=== PATIENT | female | born 1965 | race Caucasian/White ===

== ENCOUNTER → 2017-05-04 | Outpatient (CLI) | payer OTHER | END | disposition home or self-care (01) | LOC: GMAJ 10:17 | PROVIDERS: ATTEND Family Medicine | DX: I10 Essential (primary) hypertension (principal) ==

== ENCOUNTER 2017-07-31 11:00 | Emergency (ER) | payer OTHER ==
[2017-07-31 11:15] VITALS: TEMP 97.9
--- NOTE | 2017-07-31 11:24 | ED.PDOC ---
History of Present Illness - General Chief Complaint: General Stated Complaint: right neck swelling Time Seen by Provider: 07/31/17 11:19 Source: patient Exam Limitations: no limitations - History of Present Illness Initial Comments: Pattie Hidalgo 52 y/o female stated that she had right sided sharp neck pain and swelling4 days ago with pain radiating to her chest,right shoulder and shoulder blades.Also with SOB and pleuric pain on coughing.Denies fever,chills,nausea, vomiting.Has mild non productive cough. Had normal mammogram several years ago. Stated swelling getting less today. Timing/Duration: constant Severity: moderate Improving Factors: nothing, rest Worsening Factors: other - cough and pressure Associated Symptoms: shortness of breath Allergies/Adverse Reactions: Allergies Codeine Allergy (Verified 07/31/17 11:15) Home Medications: Ambulatory Orders Azithromycin [Zithromax] 500 mg PO DAILY #3 tab 07/31/17 Cefuroxime Axetil [Ceftin] 500 mg PO BID #14 tab 07/31/17 Fiber [Fiber Select Gummies] 1 chw PO DAILY 07/31/17 Loratadine [Claritin] 10 mg PO DAILY 07/31/17 Magnesium [Magnesium] 400 mg PO DAILY 07/31/17 Metoprolol Tartrate 100 mg PO BID 07/31/17 Multiple Vitamin [Multi Vitamin] 1 tab PO DAILY 07/31/17 Thyroid [Nature-Throid] 65 mg PO BINU-OTH-DAY 07/31/17 Tramadol HCl 50 mg PO Q4HR PRN #20 tab 07/31/17 Review of Systems - Review of Systems Constitutional: States: see HPI EENTM: States: see HPI Respiratory: States: see HPI Cardiology: States: no symptoms reported Gastrointestinal/Abdominal: States: no symptoms reported Genitourinary: States: no symptoms reported Musculoskeletal: States: no symptoms reported Skin: States: no symptoms reported Neurological: States: no symptoms reported Past Medical History (General) - Patient Medical History Hx Hypertension: Yes Hx Thyroid Disease: Yes Surgical History: other - ,endometrial ablation - Vaccination History Hx Influenza Vaccination: No Hx Pneumococcal Vaccination: No - Social History Hx Tobacco Use: No Hx Alcohol Use: No Hx Substance Use: No Hx Substance Use Treatment: No Hx Depression: No - Female History Patient is a Female of Child Bearing Age (10 -59 yrs old): Yes Hx Last Menstrual Period: 07/11/17 Patient : No Family Medical History - Family History Mother Family History: Unknown Hx Family Hypertension: Yes - parents Hx Family Diabetes: Yes - brother Physical Exam - Physical Exam General Appearance: Alert, Anxious, No apparent distress Eye Exam: bilateral normal Ears, Nose, Throat: hearing grossly normal, normal ENT inspection, normal pharynx Neck: full range of motion, supple, other - tenderness right side with swelling noted Respiratory: lungs clear, normal breath sounds, other - tenderness right side lung Cardiovascular/Chest: normal peripheral pulses, regular rate, rhythm, no murmur Peripheral Pulses: radial,right: 1+, radial,left: 1+ Gastrointestinal/Abdominal: normal bowel sounds, non tender, soft Back Exam: no vertebral tenderness Neurologic: no motor/sensory deficits, alert, oriented x 3 Skin Exam: normal color, warm/dry Lymphatic: no adenopathy Progress - Progress Progress: 07/31/17 11:59 Vital Signs - 8 hr 07/31/17 11:12 Temperature 97.9 F Pulse Rate [ 72 pulse ox] Respiratory 20 Rate Blood Pressure 145/84 [Left Arm] O2 Sat by Pulse 97 Oximetry - Results/Orders Results/Orders: Laboratory Tests 07/31/17 07/31/17 07/31/17 11:57 11:57 11:57 WBC 10.8 RBC 4.37 Hgb 13.1 Hct 39.6 MCV 90.7 MCH 30.1 MCHC 33.2 RDW 13.1 Plt Count 271 MPV 7.8 Absolute Neuts (auto) 8.30 H Absolute Lymphs (auto) 1.20 Absolute Monos (auto) 1.10 H Absolute Eos (auto) 0.20 Absolute Basos (auto) 0.00 Neutrophils % 76.8 Lymphocytes % 11.1 L Monocytes % 10.0 H Eosinophils % 1.6 Basophils % 0.5 D-Dimer, Quantitative 894 H* Sodium 139 Potassium 4.1 Chloride 106 Carbon Dioxide 27 Anion Gap 10.1 L BUN 15 Creatinine 0.85 BUN/Creatinine Ratio 17.6 Random Glucose 92 Serum Osmolality 278.0 Calcium 8.9 Total Bilirubin 0.4 AST 18 ALT 23 Alkaline Phosphatase 59 Troponin I Serum Total Protein 7.5 Albumin 4.0 Globulin 3.5 Albumin/Globulin Ratio 1.1 Urine Color Urine Appearance Urine pH Ur Specific Sugar [place] Urine Protein Urine Glucose (UA) Urine Ketones Urine Blood Urine Nitrite Urine Bilirubin Urine Urobilinogen Ur Leukocyte Esterase Urine RBC Urine WBC Ur Epithelial Cells Urine Bacteria 07/31/17 07/31/17 11:57 12:10 WBC RBC Hgb Hct MCV MCH MCHC RDW Plt Count MPV Absolute Neuts (auto) Absolute Lymphs (auto) Absolute Monos (auto) Absolute Eos (auto) Absolute Basos (auto) Neutrophils % Lymphocytes % Monocytes % Eosinophils % Basophils % D-Dimer, Quantitative Sodium Potassium Chloride Carbon Dioxide Anion Gap BUN Creatinine BUN/Creatinine Ratio Random Glucose Serum Osmolality Calcium Total Bilirubin AST ALT Alkaline Phosphatase Troponin I < 0.02 Serum Total Protein Albumin Globulin Albumin/Globulin Ratio Urine Color Yellow Urine Appearance Clear Urine pH 6.5 Ur Specific Sugar [place] 1.015 Urine Protein Negative Urine Glucose (UA) Negative Urine Ketones Negative Urine Blood Trace-lysed H Urine Nitrite Negative Urine Bilirubin Negative Urine Urobilinogen 0.2 Ur Leukocyte Esterase Negative Urine RBC 0-1 Urine WBC 0 Ur Epithelial Cells 1-3 Urine Bacteria 0 - EKG/XRAY/CT EKG: Sinus - rhythm, no ST T wave changes Comments: heart rate-72;possible left atrial enlargement,IRBBB XRAY: chest - right basilar pneumonia CT: non specific right sided lymphadenopathy supraclavicular CT Ordered: Yes - cta-chest:right middle and basal pna Departure - Departure Clinical Impression: Lymphadenopathy of right cervical region, Localized swelling, mass or lump of neck Pneumonia Qualifiers: Pneumonia type: due to unspecified organism Laterality: bilateral Lung location : unspecified part of lung Qualified Code(s): J18.9 - Pneumonia, unspecified organism Chest pain Qualifiers: Chest pain type: pleurodynia Qualified Code(s): R07.81 - Pleurodynia Time of Disposition: 14:41 Disposition: Discharge to Home or Self Care Condition: Fair Departure Forms: ED Discharge - Pt. Copy, Patient Portal Self Enrollment Instructions: Pneumonia-Adult, DI for Pneumonia -- Adult, DI for Lymphadenopathy Referrals: Otilio Foster MD [Primary Care Provider] - 1-2 Weeks Prescriptions: Tramadol HCl 50 mg PO Q4HR PRN #20 tab PRN Reason: Pain Azithromycin [Zithromax] 500 mg PO DAILY #3 tab Cefuroxime Axetil [Ceftin] 500 mg PO BID #14 tab Home Medications: Ambulatory Orders Azithromycin [Zithromax] 500 mg PO DAILY #3 tab 07/31/17 Cefuroxime Axetil [Ceftin] 500 mg PO BID #14 tab 07/31/17 Fiber [Fiber Select Gummies] 1 chw PO DAILY 07/31/17 Loratadine [Claritin] 10 mg PO DAILY 07/31/17 Magnesium [Magnesium] 400 mg PO DAILY 07/31/17 Metoprolol Tartrate 100 mg PO BID 07/31/17 Multiple Vitamin [Multi Vitamin] 1 tab PO DAILY 07/31/17 Thyroid [Nature-Throid] 65 mg PO BINU-OTH-DAY 07/31/17 Tramadol HCl 50 mg PO Q4HR PRN #20 tab 07/31/17 Additional Instructions: Follow up with primary md 08/01/2017 call for appointment in am;Return to emergency room as needed
--- NOTE | 2017-07-31 12:05 | RAD ---
EXAM DESCRIPTION: Chest,2 Views CLINICAL HISTORY: pain/cough COMPARISON: None available FINDINGS: The cardiomediastinal silhouette is unremarkable. There is some ill-defined alveolar opacity in the right lung base which is suspicious for pneumonia. No additional airspace consolidation or definite pleural effusion. There is no pneumothorax or acute fracture. IMPRESSION: Right basilar pneumonia. Follow-up chest radiograph after treatment is recommended to document complete resolution. Electronically signed by: Srinath John MD 07/31/2017 12:04 PM CDT Workstation: [id number]
[2017-07-31] MEDS ORDERED: LACTATED RINGERS 1,000 ML IVS ONE (12:15)
--- NOTE | 2017-07-31 14:09 | CT ---
EXAM DESCRIPTION: CTA Chest CLINICAL HISTORY: elevated d dimer/pleuritic chest pains COMPARISON: None available TECHNIQUE: Chest CTA was performed with IV contrast including MIP reconstructed images. This exam was performed according to our departmental dose-optimization program, which includes automated exposure control, adjustment of the mA and/or kV according to patient size and/or use of iterative reconstruction technique. FINDINGS: Slightly limited sensitivity for detection of pulmonary embolus due to late timing of imaging relative to contrast bolus of menstruation. With this in mind, no central pulmonary embolus is seen. There is no thoracic aortic aneurysm or dissection. Mediastinal and bilateral hilar adenopathy is noted. There is a small right-sided pleural effusion. No pericardial or left-sided effusion. The heart is enlarged. No hiatal hernia. The central airways are clear. There is airspace consolidation in the right lung base involving primarily the right lower lobe with some consolidation also in the right middle lobe. There is mild subsegmental atelectasis versus additional consolidation in the left lung base. There is a 2.3 cm left adrenal nodule. Visualized portions of the upper abdomen are otherwise unremarkable. No fracture or pneumothorax. IMPRESSION: Right basilar pneumonia with a small right-sided effusion, mediastinal and hilar adenopathy. Questionable additional developing pneumonia in the left lung base versus atelectasis. No pulmonary embolus or other acute intrathoracic abnormality. 2.3 cm left adrenal nodule. Nonemergent adrenal protocol CT is suggested for further evaluation. Electronically signed by: Srinath John MD 07/31/2017 2:08 PM CDT Workstation: [id number]
[2017-07-31] MEDS ORDERED: AZITHROMYCIN IV 500 MG in SODIUM CHLORIDE 0.9% 250ML 250 ML IVPB ONE (14:24)
[2017-07-31] MEDS ORDERED: cefTRIAXone SODIUM 1 GM VIAL IM ONE (14:25)
--- NOTE | 2017-07-31 14:32 | CT ---
EXAM DESCRIPTION: CTA Neck CLINICAL HISTORY: 52 years, Female, neck pain and swelling COMPARISON: None TECHNIQUE: CTA of the neck was performed with IV contrast including MIP reconstructed images. This exam was performed according to our departmental dose-optimization program, which includes automated exposure control, adjustment of the mA and/or kV according to patient size and/or use of iterative reconstruction technique. FINDINGS: All diameter measurements and percent stenosis values in this report are based on NASCET criteria. The exam is significantly limited by suboptimal intraluminal contrast in the carotid arteries. No left or right-sided carotid artery stenosis is identified. The vertebral arteries are suboptimally evaluated. There are multiple enhancing venous collaterals posteriorly in the neck. Right-sided supraclavicular adenopathy is noted. No cervical adenopathy is seen. No thyroid nodule. The submandibular glands are unremarkable. A small hyperdense lesion is noted in the right carotid with a fatty hilum likely representing a nonenlarged lymph node. The parotids are otherwise unremarkable. No prevertebral or pharyngeal soft tissue abnormality. The parapharyngeal spaces are unremarkable. Visualized paranasal sinuses and orbits are unremarkable. No concerning bone lesion. IMPRESSION: Right-sided supraclavicular adenopathy, nonspecific. Differential considerations include reactive adenopathy or neoplasm including lymphoma. Considering findings from patient's chest CT, follow-up imaging after treatment for pneumonia is suggested to document resolution. No adenopathy elsewhere in the neck. Limited evaluation of vascular structures as detailed above. Multiple enhancing venous collaterals in the neck which may be related to compression of the right subclavian vein by the enlarged right supraclavicular lymph nodes. Asymmetry of the jugular veins may also be related to mass effect on the right internal jugular vein from the enlarged right supraclavicular lymph nodes. Electronically signed by: Srinath John MD 07/31/2017 2:30 PM CDT Workstation: [id number]
[2017-07-31] MEDS ORDERED: AZITHROMYCIN IV 500 MG VIAL IVPB ONE (14:38)
[2017-07-31] MEDS ORDERED: SODIUM CHLORIDE 0.9% 250ML 250 ML ONE (14:38)
[2017-07-31] MEDS ORDERED: LIDOCAINE 1% 10 ML VIAL INJ ONE (14:38)
[2017-07-31 17:19] VITALS: BP 107/69; O2SAT 94
== END 2017-07-31 17:18 | disposition home or self-care (01) ==
LOC: ER 11:00
DX: J18.9 Pneumonia, unspecified organism (principal); R07.81 Pleurodynia; R59.0 Localized enlarged lymph nodes; I10 Essential (primary) hypertension; E07.9 Disorder of thyroid, unspecified; Z79.899 Other long term (current) drug therapy; Z88.6 Allergy status to analgesic agent
CPT/HCPCS: 36415; 70498; 71020; 71275; 80053; 81001; 84484; 85025; 85379; 93005; J0456; J0696; J7050; J7120

== ENCOUNTER → 2017-09-15 | Outpatient (CLI) | payer OTHER ==
--- NOTE | 2017-09-16 16:57 | CT ---
EXAM DESCRIPTION: Chest w/Contrast CLINICAL HISTORY: 52 years Female, LOCALIZED ENLARGED LYMPH NODES COMPARISON: 31 July 2017 TECHNIQUE: Transaxial images were obtained during injector administrated intravenous contrast media. Sagittal and coronal reconstruction was performed.This exam was performed according to our departmental dose-optimization program, which includes automated exposure control, adjustment of the mA and/or kV according to patient size and/or use of iterative reconstruction technique. FINDINGS: Right-sided neck adenopathy is observed. The thyroid is normal in appearance. No pathologic axillary adenopathy is observed. Upper mediastinal adenopathy is again noted. It remains essentially unchanged from the prior CT. Left hilar adenopathy is also noted. Right hilar adenopathy is also noted. Right middle lobe and right lower lobe infiltrate is again noted and does not appear significantly changed. The left lung is clear. A small right pleural effusion is noted. A 2 cm left adrenal mass is noted. No right adrenal mass is detected. Degenerative changes are seen in the thoracic spine. IMPRESSION: 1. Extensive right neck mediastinal and hilar adenopathy is observed and is worrisome for neoplasm or lymphoma. Persistent right middle lobe and right lower lobe infiltrates are observed. The patient has developed a right pleural effusion. 2. A left adrenal mass is observed and is worrisome for neoplasm. It remains unchanged. Electronically signed by: Darrell See MD 09/16/2017 4:56 PM BANDSAW OPERATOR
--- NOTE | 2017-09-16 17:28 | CT ---
EXAM DESCRIPTION: Soft Tissue Neck w/Contrast CLINICAL HISTORY: 52 years Female, LOCALIZED ENLARGED LYMPH NODES COMPARISON: 31 July 2017 TECHNIQUE: Transaxial images were obtained during injector administrated intravenous contrast medium without oral contrast media. Sagittal and coronal reconstruction was performed.This exam was performed according to our departmental dose-optimization program, which includes automated exposure control, adjustment of the mA and/or kV according to patient size and/or use of iterative reconstruction technique. FINDINGS: No intra-axial abnormality is detected. The mastoid sinus air cells as imaged are clear. No parotid gland abnormality of significance is observed. Small intraparotid nodes are observed. The submandibular glands are normal in appearance. No laryngeal or pharyngeal abnormality is seen. The exam reveals partial thrombosis of the right internal jugular vein. Extensive lower right neck adenopathy is observed. The thyroid is imaged is normal. Some upper mediastinal adenopathy is detected. The lung apices are clear. No significant left neck adenopathy is detected. IMPRESSION: 1. Extensive inferior right neck adenopathy is observed and is similar to or more pronounced than seen on the previous exam. The findings are worrisome for neoplasm or lymphoma 2. Thrombosis of the right internal jugular vein is observed in the low neck. Electronically signed by: Darrell See MD 09/16/2017 5:27 PM FLOTATION TANK OPERATOR
== END | disposition home or self-care (01) ==
LOC: CT 09:46
PROVIDERS: ATTEND Family Medicine
DX: R59.9 Enlarged lymph nodes, unspecified (principal)

== ENCOUNTER 2017-09-26 07:30 | Day surgery (SDC) | payer OTHER ==
[~2017-09-26 07:30] MED LIST: LACTATED RINGERS 1,000 ML ONE; SODIUM CHL 0.9% 100ML MINI-BAG 100 ML IVPB ONE
[2017-09-26 09:38] VITALS: O2SAT 98
[2017-09-26] MEDS: ceFAZolin SODIUM 1 GM VIAL ONE (10:48)
[2017-09-26] MEDS: LIDOCAINE 1% 50 ML VIAL INJ ONE (11:13)
[2017-09-26] MEDS: SODIUM BICARBONATE VIAL 50 MEQ/50 ML VIAL ONE (11:13)
[2017-09-26] MEDS ORDERED: PROPOFOL 200 MG/20 ML VIAL IV ONE ×2 (12:00)
[2017-09-26] MEDS ORDERED: DEXAMETHASONE INJ 10 MG/ML VIAL IV ONE (12:00)
[2017-09-26] MEDS ORDERED: ONDANSETRON INJ 4 MG/2 ML VIAL IV ONE (12:00)
[2017-09-26] MEDS ORDERED: METOCLOPRAMIDE HCL INJ 10 MG/2 ML VIAL IV ONE (12:00)
[2017-09-26] MEDS ORDERED: LACTATED RINGERS 1,000 ML ONE (12:04)
[2017-09-26 12:57] VITALS: BP 117/69; TEMP 97.1
--- NOTE | 2017-09-26 13:07 | OP ---
DATE OF PROCEDURE: 09/26/17 PREOPERATIVE DIAGNOSIS: 1. Right supraclavicular lymphadenopathy. 2. History of pneumonia. POSTOPERATIVE DIAGNOSIS: 1. Right supraclavicular lymphadenopathy. 2. History of pneumonia. PROCEDURE: 1. Excision, right supraclavicular lymph nodes for pathological examination including flow cytometry. SURGEON: Rudolph Lilly MD. INSURANCE DEFENSE PARALEGAL: None. ANESTHESIA: Local infiltration of 1% lidocaine and IV sedation by Anesthesia. INDICATION: The patient is a 52-year-old female who developed pneumonia and was found to have right supraclavicular lymphadenopathy. It was a right sided pneumonia. It was mildly tender. The pneumonia has resolved, but the lymph nodes have not. She was brought to the Surgical Suite today for excision of same. FINDINGS: Pending pathology report. PROCEDURE: After adequate anesthesia was obtained, the patient was placed in supine position, prepped and draped in the usual sterile manner. Surgical time- out was taken, then an incision was marked over the area which had previously been marked. Local infiltration of anesthesia was obtained with 1% lidocaine. The skin was incised with a knife and then dissection was carried down through through the skin and subcutaneous tissue and then the platysma using electrocautery. Some oozing was controlled with electrocautery and suture ligature of 3-0 Vicryl. The sternocleidomastoid muscle was identified and dissection was carried posterior to it and deep to it, then the lymph nodes were identified. They were dissected free using blunt dissection, clamps, ligatures and electrocautery. The specimens were sent for pathologic evaluation. Hemostasis was noted to be adequate. The wound was irrigated with saline. When this was done, hemostasis was noted to be adequate. The platysma was then closed with interrupted 4-0 Vicryl simple sutures and the skin edges approximated with 4-0 Vicryl subcuticular sutures, benzoin and Steri-Strips. Sterile pressure dressing was applied. The patient tolerated the procedure well. Estimated blood loss was approximately 50 to 75 mL. All sponge, needle and instrument counts were correct. #[id number] [facility]
== END 2017-09-26 13:20 | disposition home or self-care (01) ==
LOC: AMB 07:30
PROVIDERS: ATTEND Surgery
DX: C77.0 Secondary and unspecified malignant neoplasm of lymph nodes of head, face and neck (principal); J18.9 Pneumonia, unspecified organism; C34.90 Malignant neoplasm of unspecified part of unspecified bronchus or lung; I10 Essential (primary) hypertension; G43.909 Migraine, unspecified, not intractable, without status migrainosus; E03.9 Hypothyroidism, unspecified; Z88.5 Allergy status to narcotic agent; Z79.899 Other long term (current) drug therapy
CPT/HCPCS: 00320; 36415; 38500; 80048; 81001; 93005; J0690; J1100; J2405; J2765; J3490; J7050; J7120

== ENCOUNTER → 2018-11-08 | Outpatient (CLI) | payer BC ==
--- NOTE | 2018-11-08 17:01 | US ---
EXAM DESCRIPTION: Venous,Upper Extremity RT: ULTRASOUND. CLINICAL HISTORY: SWELLING OF ARM left. Noticed this morning. Patient had IV for 4 days at [facility]. COMPARISON: None Available. TECHNIQUE: Two -dimensional and doppler sonographic evaluation of the deep venous system of the right upper extremity. FINDINGS: Doppler evaluation shows echogenic thrombus and decreased venous color flow and the right subclavian, axillary, basilic, cephalic, brachial, and forearm cephalic vein. Radial and and ulnar vein Are patent with out thrombus, with normal venous waveform and color flow. Some of the veins are only partially thrombotic. The right internal jugular vein was not visualized. The veins containing thrombus are not compressible with the transducer. IMPRESSION: Duplex ultrasound evaluation of the right upper extremity deep venous system showing thrombosis in the right subclavian vein axillary vein, and most of the veins in the right upper arm. Also in the forearm branch of the right cephalic vein . No thrombus in the right ulnar or radial veins. CRITICAL COMMUNICATION: The critical value was discussed directly by phone with Dr. Kenji Foster at approximately 1650 hours, on November 08, 2018 Electronically signed by: Antony Brooke MD 11/08/2018 5:00 PM [facility]
== END ==
LOC: RAD 15:36
PROVIDERS: ATTEND Family Medicine
DX: I82.621 Acute embolism and thrombosis of deep veins of right upper extremity (principal); M79.89 Other specified soft tissue disorders; E86.0 Dehydration

== ENCOUNTER 2018-12-14 04:40 | Day surgery (SDC) | payer BC ==
[2018-12-14] MEDS ORDERED: LACTATED RINGERS 1,000 ML ONE (07:09)
[2018-12-14] MEDS ORDERED: SODIUM CHL 0.9% 100ML MINI-BAG 100 ML IVPB ONE (07:09)
[2018-12-14] MEDS ORDERED: ceFAZolin SODIUM 1 GM VIAL ONE (07:09)
[2018-12-14] MEDS ORDERED: HEPARIN SODIUM 100 U/ML 5 ML SYG IV ONE (07:29)
[2018-12-14] MEDS ORDERED: LIDOCAINE 1% 50 ML VIAL INJ ONE (07:29)
[2018-12-14] MEDS ORDERED: SODIUM BICARBONATE VIAL 50 MEQ/50 ML VIAL ONE (07:29)
[2018-12-14] MEDS ORDERED: SODIUM CHLORIDE 0.9% 50 ML VIAL ONE (07:30)
[2018-12-14] MEDS ORDERED: MIDAZOLAM INJ 5 MG/5 ML VIAL ONE (07:53)
[2018-12-14] MEDS ORDERED: ONDANSETRON INJ 4 MG/2 ML VIAL ONE (07:53)
[2018-12-14] MEDS ORDERED: fentaNYL CITRATE INJ 50 MCG/ML AMP ONE (07:54)
--- NOTE | 2018-12-14 10:27 | RAD ---
EXAM DESCRIPTION: Chest,1 View CLINICAL HISTORY: POSTOP INFUSAPORT PLACEMENT COMPARISON: July 31, 2017 FINDINGS: There has been interval placement of a left-sided Mediport device. The port catheter projects over the right side of the mediastinum, likely in the SVC. No pneumothorax or other pulmonary complication. The cardiac silhouette is not enlarged. There is a large right hilar mass which is new from the prior exam with a small right-sided effusion. Atelectasis or pneumonia is noted in the right lung base. The left lung and left pleural space are unremarkable. There is no pneumothorax or acute fracture. IMPRESSION: Left-sided Mediport device in place without apparent complication. Large right hilar mass, highly suspicious for neoplasm with a small right-sided effusion and atelectasis or pneumonia in the right lung base. Electronically signed by: Srinath John MD 12/14/2018 10:24 AM [facility]
--- NOTE | 2018-12-14 10:41 | OP ---
DATE OF PROCEDURE: 12/14/18 PREOPERATIVE DIAGNOSIS: 1. Carcinoma of the lung with metastasis status post radiation and chemotherapy. 2. Thrombus, right upper arm. POSTOPERATIVE DIAGNOSIS: 1. Carcinoma of the lung with metastasis status post radiation and chemotherapy. 2. Thrombus, right upper arm. PROCEDURE: 1. Insertion of left subclavian venous access port using fluoroscopy. SURGEON: Rudolph Lilly MD. DOCK BUILDER: None. ANESTHESIA: Local infiltration of 1% lidocaine with bicarb. INDICATION: The patient is a 53-year-old female who noted supraclavicular adenopathy. She underwent a biopsy previously revealing metastatic carcinoma of the lung. [facility] She has recently seen Dr. Roach and further chemotherapy is ordered. She has developed this thrombus in her right upper extremity. She was brought to the Surgical Suite today for insertion of a port. FINDINGS: The guidewire and then the catheter were eventually identified in the superior vena cava using fluoroscopy. PROCEDURE: After the patient was brought to the Surgical Suite in placed in supine position, she was prepped and draped in the usual sterile manner. A surgical time-out was taken. At this point, the infraclavicular area was infiltrated with local anesthesia. Several passes were required to identify venous blood and then there was difficulty passing the guidewire. Eventually, both of these occurred. The guidewire was advanced to 30 cm with no difficulty. A towel was placed over the field and fluoroscopy was used to identify the guidewire in the superior vena cava. At this point, an incision was made over the guidewire with #15 blade and a port pocket was formed in the usual manner with local infiltration of anesthesia, electrocautery and blunt dissection. When this was done, the port was introduced into the port pocket. The catheter was tunneled from the port pocket to the insertion site. It was then placed on a sterile towel. The port was sutured in place with two 3-0 Prolene simple sutures. The subcutaneous tissues at the port pocket was reapproximated with interrupted 3-0 Vicryl sutures. At this point, the catheter was cut to appropriate length, it was cleaned with heparinized saline and then the dilator introducer was introduced over the guidewire. The guidewire and dilator were removed. The catheter was introduced through the introducer. The introducer was then removed in the usual manner. At this point, the port was accessed, aspirated and then flushed both with heparinized saline and then finally with heplock. The Grimes needle was removed. At this point, another towel was placed over the field and fluoroscopy was used to identify the catheter in the superior vena cava. The incision were then approximated, the skin with 4-0 Vicryl subcuticular sutures, benzoin and Steri-Strips. Sterile dressings were applied. The patient tolerated the procedure well. Estimated blood loss was less than 25 mL. All sponge, needle and instrument counts were correct. Stat portable chest x-ray was ordered in the Ambulatory Unit. #[id number] [facility]
[2018-12-14] MEDS ORDERED: ELECTROLYTE A IVS ONE (12:21)
[2018-12-14 14:24] VITALS: BP 133/77; TEMP 98.4; O2SAT 96
== END 2018-12-14 11:15 | disposition home or self-care (01) ==
LOC: AMB 04:40
PROVIDERS: ATTEND Surgery
DX: C34.91 Malignant neoplasm of unspecified part of right bronchus or lung (principal); I82.890 Acute embolism and thrombosis of other specified veins; K21.9 Gastro-esophageal reflux disease without esophagitis; I10 Essential (primary) hypertension; E03.9 Hypothyroidism, unspecified; Z88.6 Allergy status to analgesic agent; Z79.01 Long term (current) use of anticoagulants; Z79.899 Other long term (current) drug therapy
CPT/HCPCS: 00532; 36561; 71045; 76000; 81001; 93005; A4216; J0690; J1642; J2250; J2405; J3010; J7050; J7120

== ENCOUNTER → 2018-12-21 | Outpatient (CLI) | payer BC ==
[~2018-12-21] MED LIST changes: +HEPARIN SODIUM 100 U/ML 5 ML SYG IV ONE; -LACTATED RINGERS 1,000 ML ONE; -SODIUM CHL 0.9% 100ML MINI-BAG 100 ML IVPB ONE
--- NOTE | 2018-12-25 10:25 | CT ---
EXAM DESCRIPTION: Chest w/Contrast : Computed Tomography. CLINICAL HISTORY: 53 years Female MALIGNANT NEOPLASM OF UNSPECIFIED PART OF BRONCHUS OR LUNG COMPARISON: CT scan of the abdomen on the same visit. She scanning of the chest with contrast 09/15/2017. TECHNIQUE: Spiral-axial scans at 5 x 5 mm intervals through the lungs and thorax after IV contrast. Note: Contrast was hand injected through the port of VAD. 2.5 x 5.0 mm lung algorithm axial reconstructions. Coronal and sagittal 2.0 Mm reconstructions. No adverse reactions. Total Exam DLP: 319.71 mGy-cm. This exam was performed according to our departmental dose-optimization program which includes automated exposure control, adjustment of the mA and/or kV according to patient size and/or use of iterative reconstruction technique; to reduce radiation dose to as low as reasonably achievable (ALARA). Nodule measurements under 10 mm are given as mean value of 3 axes diameters. FINDINGS: Lungs and large airways: Consolidation and atelectasis of the right upper lobe with volume loss has increased since the prior study. Consolidation is medial and suprahilar with multiple air bronchograms. Volume loss and peribronchial cuffing in the right middle lobe with minimal consolidation abutting the hilum and minimal atelectasis. Increased since the prior study. Possible lymphangitic thickening and or pulmonary edema which is also seen in the right lower lobe. Volume loss and atelectasis also in the right lower lobe. Minimal compression atelectasis in the left lower lobe. Lingula and left upper lobe are well expanded. No abnormal nodules masses or focal infiltrates. Pleural spaces: Bilateral pleural effusion extending to the posterior right apex on the right [id number] on the left extending to the mid thorax on the left. Minimal loculation in the right base and lateral pleura. No pneumothorax. Thickening of the right horizontal fissure and the bilateral major fissures. Mediastinum and Chyna: The conglomeration of enlarged lymph nodes on the left lateral aspect of the aortic arch have decreased in size since the prior study measuring 3.1 x 1.1 cm compared to 4 x 1.5 cm. Suprahilar node abutting the left pulmonary artery measures 9 mm short axis compared to 12 mm. Left mid hilar and left inferior hilar lymph nodes are stable or slightly smaller. An azygous node is 11 mm short axis compared to 14 mm. A subcarinal node is stable. Right hilar nodes are not difficult to evaluate due to lack of IV contrast bolus and abutting infiltrate. No large endobronchial lesions are seen bilaterally. Tip of VAD is just below the junction of the left innominate vein and left subclavian vein at the upper superior vena cava.. Great vessels and Heart: Minimal pericardial effusion. No new mass effect or significant enlargement. Soft tissues of neck base, axillae, and chest wall: Since the prior study, a large partially enhancing mass appears to be displacing the right thyroid lobe superiorly or invading versus originating from the lower right lobe this measures approximately 3.4 x 2.7 cm in the transverse plane and 3 cm craniocaudally. Also mass effect on the right internal jugular vein, adjacent muscles with displacement of the trachea to the left of midline. Increased stranding in the surrounding neck soft tissues. Edema and stranding in the left chest wall adipose tissue and left axilla adipose tissue, and posterior to the upper left pectoral muscle. This may be related to previous extravasation of contrast during injection site of the port. There is concern for a ill-defined mass with peripheral better than central enhancement measuring 1.7 x 1.3 cm in the left axilla abutting the left chest wall at the level of the left glenohumeral joint on transverse series 2, images 13 through 19. This may also be related to recent contrast extravasation and position of the left arm during the scan. Also increased density around the VAD posterior to the medial left clavicle and anterior to the left lung apex. Upper abdomen: Please see abdominal CT scan report. Osseous structures: Multiple levels of spondylosis in the thoracic spine stable as well as stable arthrosis in the bilateral sternoclavicular joints, with no new lytic or blastic lesions. IMPRESSION: 1. Progressive effusion and loculation in the right hemithorax with volume loss in all the right lobes especially right lower lobe. Perihilar consolidation in the right upper lobe and right middle lobe. Lymphangitic fluid/tumor and/or pulmonary edema right middle lobe and lower lobe. 2. Mass invading or displacing right thyroid lower lobe versus primary or metastatic tumor in the right lower lobe with adjacent fatty stranding and displacement of trachea to the left. 3. Soft tissue edema in the region of recent contrast extravasation around VAD injection port. Question of left axillary and left subclavicular mass versus soft tissue edema after contrast presentation, also abutting upper lateral left chest wall. 4. Mediastinal and left hilar nodes stable or decreasing in size since the prior study. Right hilar nodes are obscured by consolidation. Minimal pericardial effusion. Electronically signed by: Antony Brooke MD 12/25/2018 10:22 AM [facility]
--- NOTE | 2018-12-25 10:53 | CT ---
EXAM DESCRIPTION: Abdomen w/Contrast: Computed Tomography. CLINICAL HISTORY: MALIGNANT NEOPLASM OF UNSPECIFIED PART OF BRONCHUS OR LUNG COMPARISON: CT scan of the chest with contrast on this visit. TECHNIQUE: Spiral-axial scans at 5 x 5 mm intervals through the abdomen, after nonionic IV contrast. No oral contrast. Coronal and sagittal 2.0 mm reconstructions. Delayed 5 minute, 5.0 mm scans, liver to the upper pelvis. No adverse reactions. Total Exam DLP: 888.12 mGy-cm. This exam was performed according to our departmental CT dose-optimization program which includes automated exposure control, adjustment of the mA and/or kV according to patient size and/or use of iterative reconstruction technique; to reduce radiation dose to as low as reasonably achievable (ALARA). Note: Technical limitations to the study because of contrast and injected through injection port VAD, power injector cannot be utilized. FINDINGS: Lung bases and pleura: please see chest CT scan report. Liver, Stomach, Spleen, Adrenal Glands: Long axis right lobe 19.2 cm. No focal lesions. Stomach and other solid lesions are negative. Pancreas, Gallbladder, Ducts: Gallbladder visualized. Heterogeneous enhancement and density of the head of the pancreas and slightly prominent. Borders are unremarkable, except difficult to differentiate from duodenum. Minimal mass effect on the superior mesenteric vein. No surrounding fatty stranding. Proximal dilation of the common bile duct. Kidneys: Unremarkable. Mesentery: No free air or free fluid. No fatty stranding or fascial thickening. Aorta: Minimal atherosclerotic changes with no para-aortic mass. Small Bowel: Included segments are normal caliber. Terminal Ileum/Cecum: Terminal ileum is negative. Incomplete visualization of the inferior cecum and appendix not visualized. Colon: Diffuse fecal matter throughout the proximal mid colon and proximal descending colon. Rectosigmoid was not imaged. Spine: Spondylosis significant disc space loss canal narrowing and foraminal narrowing L4-L5 more than L5-S1. Abdominal Wall/Back Soft Tissues: Unremarkable. IMPRESSION: 1. Heterogeneous enhancement and density of the pancreatic head and uncinate process which are slightly enlarged. No definite mass. Surrounding soft tissues and fat planes are unremarkable, except difficult to separate from the duodenum. Minimal mass effect on the superior mesenteric vein. Minimal dilation of the proximal common bile duct. Consider right upper quadrant ultrasound evaluation 2. Other organs are unremarkable. No free fluid. Electronically signed by: Antony Brooke MD 12/25/2018 10:50 AM [facility]
== END ==
LOC: CT 08:48
PROVIDERS: ATTEND Internal Medicine Hematology & Oncology
DX: C34.90 Malignant neoplasm of unspecified part of unspecified bronchus or lung (principal); J90 Pleural effusion, not elsewhere classified
CPT/HCPCS: 71260; 74160; J1642